=== PATIENT | female | born 1935 | race Caucasian/White ===

== ENCOUNTER 2016-06-10 07:54 | Outpatient (CLI) | payer MEDICARE | END 2016-06-10 07:55 | disposition critical access hospital (66) | DX: M25.552 Pain in left hip (principal); S01.81XA Laceration without foreign body of other part of head, initial encounter; W19.XXXA Unspecified fall, initial encounter; Y92.199 Unspecified place in other specified residential institution as the place of occurrence of the external cause | CPT/HCPCS: A0425; A0429 ==

== ENCOUNTER 2016-06-10 08:10 | Emergency (ER) | payer MEDICARE ==
[2016-06-10] MEDS ORDERED: LORazepam 2 MG/ML SYRINGE ONE (14:12)
[2016-06-10] MEDS ORDERED: LORazepam 2 MG/ML SYRINGE IVP STA (14:14)
[2016-06-10] MEDS ORDERED: ACETAMINOPHEN 325 MG TABLET PO ONE (18:52)
[2016-06-10] MEDS ORDERED: ACETAMINOPHEN 500 MG TABLET PO STA (18:56)
== END 2016-06-10 19:30 ==
DX: S01.112A Laceration without foreign body of left eyelid and periocular area, initial encounter (principal); S70.02XA Contusion of left hip, initial encounter; W01.0XXA Fall on same level from slipping, tripping and stumbling without subsequent striking against object, initial encounter; Z91.81 History of falling; Y92.019 Unspecified place in single-family (private) house as the place of occurrence of the external cause; M16.12 Unilateral primary osteoarthritis, left hip; F03.90 Unspecified dementia, unspecified severity, without behavioral disturbance, psychotic disturbance, mood disturbance, and anxiety; E78.00 Pure hypercholesterolemia, unspecified; E03.9 Hypothyroidism, unspecified; Z86.711 Personal history of pulmonary embolism; Z79.82 Long term (current) use of aspirin
CPT/HCPCS: 12011; 36415; 73502; 73700; 73721; 80053; 81003; 83690; 84484; 85025; 93005; 93010; 96374; 99285; A9270; J2060

== ENCOUNTER 2016-07-14 13:02 | Outpatient (CLI) | payer MEDICARE | END 2016-07-14 13:03 | disposition home or self-care (01) | DX: N76.1 Subacute and chronic vaginitis (principal) ==